=== PATIENT | male | born 1975 | race Two or more races ===

== ENCOUNTER 2022-07-18 09:26 | Emergency (ER) | payer MEDICAID ==
--- NOTE | 2022-07-18 09:30 | NUR ---
Tried to obtain hx from pt, pt becomes irritated with questioning and reports how bad of a hospital this is. Pt noted with pt arm band from [facility] from 2 days ago. Pt unable to report what he was seen for and again becomes irritated with questions and curses at staff. Pt gets out of wheel chair and leaves room.
== END 2022-07-18 12:55 | disposition left against medical advice (07) ==
LOC: EDBD → MERGE 09:27 → ER 09:27
DX: R06.02 Shortness of breath (principal); Z53.21 Procedure and treatment not carried out due to patient leaving prior to being seen by health care provider
CPT/HCPCS: 93005